=== PATIENT | female | born 1980 | race African-American/Black ===

== ENCOUNTER 2018-07-20 10:08 | Emergency (ER) | payer MEDICAID, OTHER ==
[~2018-07-20] VITALS: Ht 177.8 cm; Wt 52.2 kg
[2018-07-20 10:23] VITALS: BP 96/61
[2018-07-20 11:02] LABS: Urine Bacteria FEW /hpf (None Seen); Urine Blood 2+ /uL (Negative); Urine Specific Gravity 1.013 (1.001-1.035); Urine WBC 85 /hpf (0 - 5); Urine WBC Clumps PRESENT /hpf (None Seen)
== END 2018-07-20 11:48 | disposition home or self-care (01) ==
LOC: ER 10:08
DX: N39.0 Urinary tract infection, site not specified (principal)
CPT/HCPCS: 81001

== ENCOUNTER 2018-09-11 11:31 | Emergency (ER) | payer MEDICAID ==
[~2018-09-11] VITALS: Ht 180.3 cm; Wt 49.9 kg
[2018-09-11 11:55] VITALS: BP 120/80
== END 2018-09-11 13:55 | disposition home or self-care (01) ==
LOC: ER 11:31
DX: F41.9 Anxiety disorder, unspecified (principal); F32.9 Major depressive disorder, single episode, unspecified; Z76.0 Encounter for issue of repeat prescription